=== PATIENT | female | born 1970 | race Caucasian/White ===

== ENCOUNTER 2024-11-04 03:39 | Emergency (ER) | payer OTHER ==
[2024-11-04 03:43] VITALS: RESP 18
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
[2024-11-04 05:25] VITALS: BP 131/79; PULSE 78; TEMP 97.8
== END 2024-11-04 04:40 | disposition home or self-care (01) ==
LOC: EC 03:39
DX: Z04.1 Encounter for examination and observation following transport accident (principal); V49.40XA Driver injured in collision with unspecified motor vehicles in traffic accident, initial encounter; Y92.410 Unspecified street and highway as the place of occurrence of the external cause
CPT/HCPCS: 99284